=== PATIENT | male | born 1950 | race Caucasian/White ===

== ENCOUNTER 2016-06-24 10:16 | Outpatient (CLI) | payer MEDICARE, OTHER ==
[2016-06-24] VITALS (7 sets, daily range): BP systolic 115–139; BP diastolic 71–94; PULSE 62–78; TEMP 97.4
[~2016-06-24] VITALS: Ht 172.8 cm; Wt 72.0 kg
[~2016-06-24 10:16] MED LIST: ASPIRIN E.C. 8181 MG PO; PRILOSEC 20MG20 MG PO; ZOCOR 10MG10 MG PO
[2016-06-24] MEDS ORDERED: FLEXERIL 1010 MG/TAB PO (12:34)
== END 2016-06-24 18:20 | disposition home or self-care (01) ==
LOC: COL.RAD 10:16 → COL.CAR 12:30 → COL.RAD 18:20
DX: M48.54XA Collapsed vertebra, not elsewhere classified, thoracic region, initial encounter for fracture (principal)
CPT/HCPCS: C1713; J2250; J3010; J7120